=== PATIENT | male | born 1950 | race African-American/Black ===

== ENCOUNTER 2024-09-24 22:14 | Emergency (ER) | payer BC, MEDICAID, MEDICARE ==
[~2024-09-24] VITALS: Ht 177.8 cm; Wt 80.0 kg
[2024-09-24 22:30] VITALS: TEMP 36.7; O2SAT 99
[2024-09-24 23:04] LABS: BASOPHILS % 0.5 % (0.0-2.0); EOSINOPHILS % 2.4 % (0.0-5.0); HEMATOCRIT. 38.6 % (42.0-52.0); HEMOGLOBIN. 12.6 g/dL (14.0-18.0); LYMPHOCYTES % 48.1 % (20.0-50.0); MEAN CORPUSCULAR HEMOGLOBIN 32.1 pg (28.0-32.0); MEAN CORPUSCULAR HGB CONC 32.6 g/dL (31.0-37.0); MEAN CORPUSCULAR VOLUME 98.7 fL (80.0-94.0); MEAN PLATELET VOLUME 7.9 fl (7.4-10.4); MONOCYTES % 9.4 % (2.0-8.0); NEUTROPHILS % 39.6 % (40.0-76.0); PLATELET 248 x1000/uL (130-400); RED BLOOD CELL COUNT 3.91 mill/uL (4.7-6.1); RED CELL DISTRIBUTION WIDTH 14.1 % (11.6-14.6); WHITE BLOOD COUNT 7.7 x1000/uL (4.5-11.0)
[2024-09-24 23:18] LABS: CHLORIDE 106 mEq/L (98-107); SODIUM 140 mEq/L (136-145)
[2024-09-24 23:19] LABS: CALCIUM 9.8 mg/dL (8.7-10.4); CARBON DIOXIDE 28 mEq/L (21-32)
[2024-09-24 23:24] LABS: CREATININE 0.8 mg/dL (0.6-1.3); GLUCOSE 115 mg/dL (70-105); UREA NITROGEN BLOOD 10 mg/dL (9-23)
[2024-09-24 23:25] LABS: TROPONIN I HIGH SENSITIVITY 21 ng/L (3.0-53)
[2024-09-25] MEDS ORDERED: CYCL10TA21 MT (02:56)
[2024-09-25] MEDS ORDERED: IBUP-2029 MT (02:56)
[2024-09-25 03:42] VITALS: BP 185/84; PULSE 64; RESP 13; O2SAT 95
== END 2024-09-25 03:35 | disposition home or self-care (01) ==
LOC: ER 22:14
DX: G89.29 Other chronic pain (principal); M79.18 Myalgia, other site; M54.9 Dorsalgia, unspecified; V89.2XXA Person injured in unspecified motor-vehicle accident, traffic, initial encounter; Y93.89 Activity, other specified; Y92.410 Unspecified street and highway as the place of occurrence of the external cause; Y99.8 Other external cause status
CPT/HCPCS: 36415; 72131; 73502; 80048; 84484; 85025; 93005; 99285